=== PATIENT | female | born 2000 | race Caucasian/White ===

== ENCOUNTER → 2020-02-12 | Emergency (ER) | payer MEDICAID ==
[~2020-02-12] VITALS: Ht 160 cm; Wt 62.5 kg
[~2020-02-12] MED LIST: CIPR2.5D18 EACHEYE
[2020-02-12 19:16] VITALS: BP 103/73
== END | disposition home or self-care (01) ==
LOC: ER 17:24
DX: H10.9 Unspecified conjunctivitis (principal); J45.909 Unspecified asthma, uncomplicated; Z79.899 Other long term (current) drug therapy
CPT/HCPCS: 99283

== ENCOUNTER 2021-05-29 13:01 | Emergency (ER) | payer MEDICAID ==
[~2021-05-29] VITALS: Ht 160 cm; Wt 59.0 kg
[2021-05-29 14:27] VITALS: BP 102/78
[2021-05-29] MEDS ORDERED: HYDROcodone/acetaminophen 10/325mg tab PO ONE (14:30)
[2021-05-29] MEDS ORDERED: ketorolac trometh inj. 60 MG/2 ML VIAL IM ONE (17:50)
[2021-05-29] MEDS ORDERED: orphenadrine citrate 60mg/2ml inj. IM ONE (17:50)
[2021-05-29] MEDS ORDERED: HYDROcodone/acetaminophen 5mg/325mg tablet PO ONE (17:50)
[2021-05-29] MEDS ORDERED: ORPH100T2 PO (19:42)
[2021-05-29] MEDS ORDERED: HYDR-3965 PO (19:42)
[2021-05-29] MEDS ORDERED: KETO10TA2 PO (19:42)
--- NOTE | 2021-05-29 19:44 | NUR ---
PT WAS SEEN, TREATED AND DC'D BY MD PRIOR TO HEAD TO TOE ASSESSMENT.
== END 2021-05-29 19:32 | disposition left against medical advice (07) ==
LOC: ER 13:03
DX: S39.012A Strain of muscle, fascia and tendon of lower back, initial encounter (principal); M54.17 Radiculopathy, lumbosacral region; M54.41 Lumbago with sciatica, right side; J45.909 Unspecified asthma, uncomplicated; W19.XXXA Unspecified fall, initial encounter; Y93.89 Activity, other specified; Y92.89 Other specified places as the place of occurrence of the external cause; Y99.8 Other external cause status
CPT/HCPCS: 72148; 96372; 99284; J1885; J2360

== ENCOUNTER 2024-02-21 10:41 | Outpatient (CLI) | payer MEDICAID ==
[~2024-02-21 10:41] MED LIST changes: -CIPR2.5D18 EACHEYE; +KETO10TA2 PO; +ORPH100T4 PO
== END 2024-02-21 23:59 | disposition home or self-care (01) ==
LOC: RAD 10:41
PROVIDERS: ATTEND Podiatrist
DX: M79.672 Pain in left foot (principal)
CPT/HCPCS: 73610; 73630; 78315; A9503

== ENCOUNTER 2024-05-27 10:11 | Outpatient (CLI) | payer MEDICAID | END 2024-05-27 23:59 | disposition home or self-care (01) | LOC: RAD 10:11 | PROVIDERS: ATTEND Podiatrist | DX: M79.672 Pain in left foot (principal) | CPT/HCPCS: 73610; 73630 ==

== ENCOUNTER 2025-06-09 19:37 | Emergency (ER) | payer BC, MEDICAID ==
[~2025-06-09] VITALS: Ht 157.5 cm; Wt 61.4 kg
[2025-06-09 20:05] VITALS: TEMP 98.6
[2025-06-09 20:38] LABS: MEAN PLATELET VOLUME 9.4 FL (7.4-10.4); RED CELL DISTRIBUTION WIDTH 13.5 % (11.5-14.5)
--- NOTE | 2025-06-09 20:44 | RADIOLOGY REPORT ---
EXAM: DI CHEST,SINGLE VIEW HISTORY: SOB TECHNIQUE: 1 view of the chest COMPARISON: None FINDINGS/IMPRESSION: LUNGS: No pleural effusion, consolidation, or pneumothorax MEDIASTINUM: Unremarkable BONES: No acute osseous abnormality OTHER: None
[2025-06-09 20:51] LABS: CREATININE 0.67 MG/DL (0.40-0.90); TOTAL CARBON DIOXIDE 19.4 MMOL/L (24-32); eCRCL 101 ML/MIN; eGFR > 90 ML/MIN
--- NOTE | 2025-06-09 21:21 | Physician Documentation ---
History of Present Illness ~ Chief Complaint: Flu Symptoms Stated Complaint: FEVER Time Seen by MD: 21:11 Primary Medical Doctor: shona at [facility] HPI This 24-year-old female with a long history of asthma presents after developing cold symptoms for the last few days. States she had a fever of 104 this morning to DayQuil which did not help her symptoms. So used her rescue inhalers at home with only minimal improvement reports nausea vomiting last episode being proximally 1 hr minutes ago Patient is in distress with a rapid respirations but is able to speak with a 3-4 word sentences. States she thinks she has a flu or COVID but primarily feels as though her chest very tight Day of Onset: Jun 09, 2025 Medication Reconciliation Allergies: Coded Allergies: iodine (Verified Allergy, Severe, 06/09/25) ibuprofen (Verified Allergy, Unknown, 06/09/25) Scheduled Ketorolac Tromethamine (Ketorolac Tromethamine), 1 TAB PO Q8H Orphenadrine Citrate (Norflex), 1 TAB PO Q12H PRN Prednisone (Prednisone), 1 TAB PO BID Past Medical History Past Medical History: Asthma, *MUSCULOSKELETAL* Past Surgical History: no surgical history Alcohol Use: None Drug Use: none Lives with: Family Lives In: Home Review of Systems All Other Systems at this time: Reviewed and Negative ROS As stated above in the HPI, otherwise all systems are reviewed and negative. Physical Exam Vital Signs: Temperature: 98.6, Source: Temporal, Heart Rate: 102, Respiratory Rate: 28, BP: 132/73, Pulse Oximetry: 99, Weight: 61.360 Oxygen Flow Rate: 0 Physical Exam General: Alert, moderatre Respiratory distress Respiratory: Tight lung sounds, poor air movement ,no wheezes Chest: No accessory muscle use. Cardiovascular: Regular rate and rhythm, no murmurs. Extremities: Normal range of motion, no deformity. Neurologic: Oriented x4. Psychiatric: anxious appearing Skin: Normal color, warm and dry. No edema, no ecchymosis. Progress Results/Orders Results/Orders Orders - JARAD TEJADA PEANUT SALTER Svn Treatment (06/09/25 ) Svn Treatment (06/09/25 ) Completed Orders - JARAD TEJADA PEANUT SALTER Ipratropium/Albuterol Nebule (Ipratrop/A (06/09/25 21:15) Methylprednisolone Sod Succ (Solumedrol (06/09/25 21:15) Ipratropium/Albuterol Nebule (Ipratrop/A (06/09/25 22:45) Medications Received in ER Medications (Trade) Dose Ordered Sig/Nohemi Route PRN Reason Start Time Stop Time Status Last Admin Dose Admin (ipratrop/ albuterol 0.5-3(2.5) MG/3ml nebule) 3 ml ONCE ONCE NEB 06/09/25 21:15 06/09/25 21:16 DC 06/09/25 21:56 3 ML (SoluMEDROL 125mg inj) 125 mg ONCE ONCE IV 06/09/25 21:15 06/09/25 21:16 DC 06/09/25 21:33 125 MG (ipratrop/ albuterol 0.5-3(2.5) MG/3ml nebule) 3 ml ONCE ONCE NEB 06/09/25 22:45 06/09/25 22:46 DC 06/09/25 22:49 3 ML Vital Signs 06/09/25 06/09/25 06/09/25 06/09/25 20:05 21:59 22:04 22:53 Temp 98.6 Pulse 102 68 87 103 Resp 28 18 20 18 B/P (MAP) 132/73 Pulse Ox 99 99 99 98 O2 Delivery Room Air* Room Air* Room Air* O2 Flow Rate 0 0 0 0 FiO2 21 21 21 06/09/25 23:00 Pulse 115 Resp 18 Pulse Ox 100 O2 Delivery Room Air* O2 Flow Rate 0 FiO2 21 Laboratory Tests Test 06/09/25 20:24 06/09/25 21:20 White Blood Count 3.8 L Red Blood Count 4.54 Hemoglobin 13.7 Hematocrit 39.8 Mean Corpuscular Volume 87.7 Mean Corpuscular Hemoglobin 30.1 Mean Corpuscular Hemoglobin Concent 34.3 Red Cell Distribution Width 13.5 Platelet Count 138 L Mean Platelet Volume 9.4 Neutrophils (%) (Auto) 78.2 H Lymphocytes (%) (Auto) 12.0 L Monocytes (%) (Auto) 8.7 Eosinophils (%) (Auto) 0.9 Basophils (%) (Auto) 0.2 Neutrophils # (Auto) 3.0 Lymphocytes # (Auto) 0.5 L Monocytes # (Auto) 0.3 Eosinophils # (Auto) 0.0 Basophils # (Auto) 0.0 CBC Comment Sodium Level 139 Potassium Level 3.5 Chloride Level 106 Carbon Dioxide Level 19.4 L Anion Gap 14 Blood Urea Nitrogen 4 L Creatinine 0.67 Estimated GFR/1.73 m2 > 90 BUN/Creatinine Ratio 6.0 L Glucose Level 93 Lactic Acid Level 1.0 Calcium Level 9.3 Albumin 4.2 Procalcitonin < 0.05 Chemistry Comments Urine Specimen Description Cln catch midstream Urine Color Yellow Urine Clarity Clear Urine pH 7.5 Urine Specific [place] 1.020 Urine Protein Negative Urine Glucose (UA) Negative Urine Ketones >=80 Urine Occult Blood Negative Urine Nitrite Negative Urine Bilirubin Small Urine Urobilinogen 1.0 Urine Leukocyte Esterase Negative Urine Culture Indicated Not ind Volume Urine Centrifuged 10 ml Urine Comment Microbiology Date/Time Source Procedure Growth Status 06/09/25 20:29 Blood Arm Left Blood Culture - Preliminary NEGATIVE (LESS THAN 24 HOURS) Resulted Medical Decision Making Findings This patient presented with a all the clinical indicators of asthma exacerbation. I treated her as such she received two SVN treatments in the dose of Solu-Medrol. After which she presented in a much less acute respiratory distress and reported her chest pain had mostly resolved. She likely suffering from an upper respiratory virus which led her down the pass with the pathway of a asthma exacerbation. Advised her to take medication as prescribed at home I also started her on prednisone to prevent any further exacerbation Differential Dx:Considerations: Include: anxiety, asthma, bronchitis, cardiogenic shock, CHF, COPD, dysrhythmia, hypertension, accelerated, hyper tension, essential, hypertension, malignant, hyperventilation, hyponatremia, myocardial infarction, panic attack, pneumonia, pneumonitis, pneumothorax, PSVT, pulmonary embolism, respiratory distress, respiratory failure, sinusitis, upper resp. infection, other Departure Disposition: HOME / SELF CARE / HOMELESS Impression: Primary Impression: Viral infection Additional Impressions: Influenza Asthma Discharge Instructions: Asthma Action Plan, Adult Referrals: NO PRIMARY CARE PROVIDER (PCP) Prescriptions Prednisone (Prednisone) 10 Mg Tablet 1 TAB PO BID for 5 Days, #10 TAB Prov: JARAD TEJADA PEANUT SALTER 06/09/25 Education Educated: Patient Educated regarding: diagnosis Critical Care Note Total Time (mins): 30 Critical Care Note The very real possibility of a deterioration of this patient's condition required the highest level of my preparedness for sudden, emergent intervention. I provided critical care services, which included medication orders, frequent reevaluations of the patient's condition and response to treatment, ordering and reviewing test results, and discussing the case with various consultants. E xcludes time spent performing separately billable procedures. The critical care time associated with the care of the patient was. Signature Scribe Signature: t Attestation: Scribed for Jarad Tejada Reference Investigator by Jarad Turong NP . 06/09/25 21:26 JARAD TEJADA NP Jun 09, 2025 21:21
[2025-06-09] MEDS ORDERED: PRED10TA23 PO (21:27)
[2025-06-09 21:41] LABS: UA COLLECTION TYPE CLN CATCH MIDSTREAM
[2025-06-09 21:42] LABS: LEUKOCYTE ESTERASE ,URINE NEGATIVE (Neg); NITRITES, URINE NEGATIVE (Neg); OCCULT BLOOD,URINE NEGATIVE (Neg)
[2025-06-09] MEDS: ipratropium/albuterol 3ml nebule NEB ONE ×2 (21:56→22:49)
[2025-06-09 21:59] VITALS: PULSE 68; RESP 18; O2SAT 99
[2025-06-09 22:04] VITALS: PULSE 87; RESP 20; O2SAT 99
[2025-06-09 22:53] VITALS: PULSE 103; RESP 18; O2SAT 98
[2025-06-09 23:00] VITALS: PULSE 115; RESP 18; O2SAT 100
[2025-06-09 23:20] VITALS: BP 130/74; PULSE 89; RESP 20; O2SAT 98
--- NOTE | 2025-06-10 06:25 | ELECTROCARDIOGRAPH REPORT ---
[facility] Test Date: 2025-06-09 Test Time: 20:24:33 Pat Name: RODRIGUE SANDRA Department: EMERGENCY ROOM Patient ID: [facility]-[id number] Room: Gender: F Cloud Architect: : [id number] Requested By: THEODORA SANON Order Number: [id number] Reading MD: Measurements Intervals [place] Rate: 83 P: -8 UT: 118 QRS: -16 QRSD: 92 T: 140 QT: 312 QTc: 367 Interpretive Statements Sinus rhythm Borderline short UT interval Consider right atrial enlargement LVH with secondary repolarization abnormality Baseline wander in lead(s) I,III,aVR,aVL,V3,V4,V5,V6 Please click the below link to view image of tracing.
== END 2025-06-09 23:30 | disposition home or self-care (01) ==
LOC: ER 19:37
DX: J11.1 Influenza due to unidentified influenza virus with other respiratory manifestations (principal); J45.909 Unspecified asthma, uncomplicated; Z88.8 Allergy status to other drugs, medicaments and biological substances; Z88.6 Allergy status to analgesic agent; Z79.899 Other long term (current) drug therapy
CPT/HCPCS: 36415; 71045; 80048; 81003; 83605; 84145; 85025; 87040; 93005; 94640; 96374; 99291; J2919